=== PATIENT | male | born 2005 | race Caucasian/White ===

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

== ENCOUNTER → 2023-05-04 | Outpatient (REF) | payer OTHER | LOC: M LAB REF 16:04 | PROVIDERS: ATTEND Physician Assistant Medical | DX: J02.9 Acute pharyngitis, unspecified (principal) ==

== ENCOUNTER → 2023-05-07 | Outpatient (REF) | payer OTHER | LOC: M LAB REF 21:34 | PROVIDERS: ATTEND Physician Assistant Medical | DX: B34.9 Viral infection, unspecified (principal) ==